=== PATIENT | male | born 1970 ===

== ENCOUNTER 2020-04-27 08:00 | Outpatient (CLI) | payer SELFPAY ==
--- NOTE | 2020-04-27 12:10 | XRAY Report ---
PROCEDURE: Finger(s) LT INDICATIONS: LACERATION TECHNIQUE: AP hand, 2 additional views of the fifth digit acquired. COMPARISON: None. FINDINGS: Bones: There is a possible small chip fracture along the volar ulnar aspect of the fifth distal phal anx. No dislocations. Soft tissues: There is a laceration along the volar aspect of the fifth digit distally which appears to extend to the distal phalanx. Multiple soft tissue densities are present along the course of the l aceration compatible with small foreign bodies or dense blood product. IMPRESSION: 1. Volar soft tissue laceration of the fifth digit distally which appears to extend to the underlying bone with a possible small chip fracture. 2. Multiple soft tissue densities along the course of the laceration compatible with small joint bodi es or dense blood product. Reviewed by: Steven Landis MD on 04/27/2020 12:09 PM [facility] Approved by: Steven Landis MD on 04/27/2020 12:09 PM [facility] Station ID: [id number]
== END 2020-04-27 23:59 | disposition home or self-care (01) ==
LOC: DI.S 08:00
PROVIDERS: ATTEND Emergency Medicine
DX: S61.217D Laceration without foreign body of left little finger without damage to nail, subsequent encounter (principal)